=== PATIENT | male | born 1985 | race Two or more races ===

== ENCOUNTER 2024-02-19 14:05 | Emergency (ER) | payer OTHER ==
[~2024-02-19] VITALS: Ht 182.9 cm; Wt 108.4 kg
[2024-02-19] MEDS ORDERED: HYDROCODONE/CHLORPHEN P-STIREX 5 ML ML PO STA (15:52)
[2024-02-19 16:58] LABS: HEMATOCRIT 36.7 % (39.0-48.0); HEMOGLOBIN 12.4 g/dL (13-16.00); MEAN CELL VOLUME 82.3 fL (80.0-100.00); MEAN CORPUSCULAR HEMOGLOBIN 27.7 pg (27.00-32.0); MEAN CORPUSCULAR HGB CONC 33.7 g/dl (32.0-36.0); PLATELET COUNT 262 K/uL (150-450); RED BLOOD COUNT 4.46 M/uL (4.00-6.00); RED CELL DISTRIBUTION WIDTH 14.6 % (11.5-14.5)
[2024-02-19] MEDS ORDERED: levoFLOXacin IN DEXTROSE 5 % 500MG/100ML PIGGYBAG IV STA (19:06)
[2024-02-19] MEDS ORDERED: METHYLPREDNISOLONE SOD SUCC 125 MG IV ONE (19:15)
[2024-02-19] MEDS ORDERED: ALBUTEROL SULFATE 3 ML/2.5 MG AMPUL.NEB IH SCH (19:15)
[2024-02-19] MEDS ORDERED: IPRATROPIUM BROMIDE 0.5 MG/2.5 ML AMPUL.NEB IH SCH (19:15)
[2024-02-19] MEDS ORDERED: METHYLPREDNISOLONE SOD SUCC 125 MG VIAL IV NR (19:45)
[2024-02-19] MEDS ORDERED: KETOROLAC TROMETHAMINE 30 MG VIAL IM STA (22:26)
[2024-02-19] MEDS ORDERED: DEXAMETHASONE4 MG PO (22:39)
[2024-02-19] MEDS ORDERED: ALBUTEROL2.5 MG/3 M IH (22:39)
[2024-02-19] MEDS ORDERED: GUMSOL SPRAY30 ML MM (22:39)
[2024-02-19 23:03] LABS: ABG PH 7.415 (7.35-7.45); ABG PO2 76.1 mmHg (80-100); ABG pCO2 42.1 mmHg (35-45); BASE EXCESS 1.6 mmol/l; BICARBONATE 26.4 mmol/l (23-25); SaO2 95.3 %; Tco2 27.7 mmol/l; o2 21 %
[2024-02-19 23:04] LABS: allen test SATISFACTORY; puncture site RADIAL RIGHT
== END 2024-02-19 23:06 | disposition home or self-care (01) ==
LOC: ER 14:06
PROVIDERS: General Practice
DX: R53.81 Other malaise (principal); J06.9 Acute upper respiratory infection, unspecified; J02.9 Acute pharyngitis, unspecified; Z20.822 Contact with and (suspected) exposure to COVID-19